=== PATIENT | male | born 2000 | race Caucasian/White ===

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

== ENCOUNTER 2021-07-06 11:05 | Emergency (ER) | payer MEDICAID ==
[~2021-07-06] VITALS: Ht 157.5 cm; Wt 86.2 kg
[2021-07-06 11:14] VITALS: BP 186/71
--- NOTE | 2021-07-06 11:37 | NUR ---
21 Y/O MALE BIB self for C/O RIGHT EAR PAIN 5/10, FULLNESS and pressure like pain, +TINNITUS. DENIES FEVER/CHILLS. DENIES N/V/D. Denies cp at this time. States he was showering and may have water or wax trapped inside. Uses Q-tips and ear removal wax drops. No wax was expelled. PmHx: Denies Allergies: Denies Home medications: none
--- NOTE | 2021-07-06 12:26 | NUR ---
Manny Strickland at bedside for procedure per RICK huffman
[2021-07-06 13:12] VITALS: BP 175/69
== END 2021-07-06 13:12 | disposition home or self-care (01) ==
LOC: MED 11:05
DX: H61.23 Impacted cerumen, bilateral (principal)
CPT/HCPCS: 99282

== ENCOUNTER 2023-02-22 00:12 | Emergency (ER) | payer MEDICAID ==
[~2023-02-22] VITALS: Ht 162.6 cm; Wt 92.1 kg
[2023-02-22 00:29] VITALS: BP 135/87
[2023-02-22 00:46] LABS: APPEARANCE,URINE CLEAR (CLEAR); BILIRUBIN,URINE NEGATIVE (NEGATIVE); BLOOD, URINE NEGATIVE (NEGATIVE); COLOR,URINE YELLOW (YELLOW); LEUKOCYTE ESTERASE ,URINE NEGATIVE (NEGATIVE); NITRITE, URINE NEGATIVE (NEGATIVE); UGLUCOSE NEGATIVE (NEGATIVE)
--- NOTE | 2023-02-22 02:14 | NUR ---
PT AMBULATED TO BED 3
[2023-02-22] MEDS ORDERED: KETOROLAC 30 MG/ML VIAL IM ONE (02:35)
[2023-02-22 02:48] LABS: BASOPHILS % (AUTO) 0.5 % (0.0-2.0); EOSINOPHILS # (AUTO) 0.1 K/uL (0-0.4); EOSINOPHILS % (AUTO) 1.3 % (0.0-4.0); HEMATOCRIT 45.8 % (36-52); HEMOGLOBIN 15.6 g/dL (12.0-18.0); LYMPHOCYTES # (AUTO) 2.3 K/uL (2.0-11.5); LYMPHOCYTES % (AUTO) 32.9 % (20.5-51.1); MEAN CORPUSCULAR HEMOGLOBIN 30 pg (27-31); MEAN CORPUSCULAR HGB CONC 34 g/dL (33-37); MEAN CORPUSCULAR VOLUME 87.5 fL (80-94); MONOCYTES # (AUTO) 0.7 K/uL (0.8-1.0); MONOCYTES % (AUTO) 10.4 % (1.7-9.3); NEUTROPHILS # (AUTO) 3.9 K/uL (1.8-7.7); NEUTROPHILS % (AUTO) 54.9 % (42.2-75.2); PLATELET COUNT (AUTO) 219 K/uL (140-450); RED BLOOD CELL COUNT(AUTO) 5.24 MIL/uL (4.20-6.10); RED CELL DISTRIBUTION WIDTH 13.4 % (11.6-13.7); WHITE BLOOD COUNT (AUTO) 7.1 K/uL (4.8-10.8)
[2023-02-22 02:56] LABS: BARBITURATE, URINE NEGATIVE ng/ml (NEG <=200); BENZODIAZEPINE, URINE NEGATIVE ng/mL (NEG <=200); CANNABINOID, URINE NEGATIVE ng/mL (NEG <=50); COCAINE, URINE NEGATIVE ng/mL (NEG <=300); OPIATE, URINE NEGATIVE ng/mL (NEG <=2000); PHENCYCLIDINE SCREEN,URINE NEGATIVE ng/mL (NEG <=25)
[2023-02-22 03:07] LABS: ALBUMIN 3.7 g/dL (3.4-5.0); ANION GAP 11.1 (8-16); CREATININE 1.1 mg/dL (0.6-1.3); POTASSIUM 4.1 mmol/L (3.5-5.1); TOTAL BILIRUBIN 0.4 mg/dL (0.0-1.0)
[2023-02-22] MEDS ORDERED: NAPR-54 PO (03:33)
[2023-02-22 03:40] VITALS: BP 135/87
--- NOTE | 2023-02-22 03:40 | NUR ---
Patient discharged with v/s stable. Written and verbal after care instructions given and explained. Patient alert, oriented and verbalized understanding of instructions. Ambulatory with steady gait. All questions addressed prior to discharge. ID band removed. Patient advised to follow up with PMD. Rx of NAPROXEN given. Patient educated on indication of medication including possible reaction and side effects. Opportunity to ask questions provided and answered. DX:FLANK PAIN, ADULT
== END 2023-02-22 03:40 | disposition home or self-care (01) ==
LOC: MED 00:12
DX: R10.9 Unspecified abdominal pain (principal); Z79.899 Other long term (current) drug therapy
CPT/HCPCS: 36415; 80053; 80305; 81003; 83690; 85025; 87491; 96372; 99283; J1885

== ENCOUNTER 2023-05-25 13:06 | Emergency (ER) | payer MEDICAID ==
[~2023-05-25] VITALS: Ht 162.6 cm; Wt 68.0 kg
[~2023-05-25 13:06] MED LIST: NAPR-54 PO
[2023-05-25 13:08] VITALS: BP 125/67; PULSE 62; RESP 16; TEMP 97.3; O2SAT 98
[2023-05-25] MEDS: DICYCLOMINE HCL LIQUID 20 MG, ALUMINUM HYD/MAG/SIMETHICONE 30 ML, LIDOCAINE VISCOUS 2% ... PO ONE ×3 (13:40)
[2023-05-25] MEDS ORDERED: ALUMINUM HYD/MAG/SIMETHICONE 30 ML UDC ONE (15:10)
[2023-05-25] MEDS ORDERED: DICYCLOMINE HCL LIQUID 10 MG/5 ML UDC ONE (15:10)
[2023-05-25] MEDS ORDERED: FAMO-90 PO (15:28)
== END 2023-05-25 16:03 | disposition home or self-care (01) ==
LOC: MED 13:06
DX: K29.70 Gastritis, unspecified, without bleeding (principal); K21.9 Gastro-esophageal reflux disease without esophagitis; Z79.899 Other long term (current) drug therapy; Z79.1 Long term (current) use of non-steroidal anti-inflammatories (NSAID)
CPT/HCPCS: 99282

== ENCOUNTER 2024-07-02 16:13 | Emergency (ER) | payer MEDICAID, OTHER ==
[~2024-07-02] VITALS: Ht 162.6 cm; Wt 93.4 kg
[~2024-07-02 16:13] MED LIST changes: +FAMO-90 PO; +NAPR-337 PO; -NAPR-54 PO
[2024-07-02 16:55] VITALS: BP 138/88; PULSE 87; RESP 15; TEMP 98.8; O2SAT 97
[2024-07-02 17:59] LABS: APPEARANCE,URINE CLEAR (CLEAR); BILIRUBIN,URINE NEGATIVE (NEGATIVE); BLOOD, URINE NEGATIVE (NEGATIVE); COLOR,URINE YELLOW (YELLOW); LEUKOCYTE ESTERASE ,URINE NEGATIVE (NEGATIVE); NITRITE, URINE NEGATIVE (NEGATIVE); PROTEIN,URINE NEGATIVE (NEGATIVE); UGLUCOSE NEGATIVE (NEGATIVE); UROBILINOGEN,URINE 0.2 EU/dL (0.2 - 1)
[2024-07-02] MEDS ORDERED: CARB15DR61 OT (18:18)
== END 2024-07-02 18:23 | disposition home or self-care (01) ==
LOC: MED 16:13
DX: R35.0 Frequency of micturition (principal); R39.15 Urgency of urination; H61.23 Impacted cerumen, bilateral; K21.9 Gastro-esophageal reflux disease without esophagitis; G43.909 Migraine, unspecified, not intractable, without status migrainosus; Z86.73 Personal history of transient ischemic attack (TIA), and cerebral infarction without residual deficits; Z79.899 Other long term (current) drug therapy
CPT/HCPCS: 81003; 82948; 99283

== ENCOUNTER 2024-07-31 09:34 | Emergency (ER) | payer OTHER ==
[~2024-07-31] VITALS: Ht 162.6 cm; Wt 94.8 kg
[~2024-07-31 09:34] MED LIST changes: +CARB15DR61 OT
[2024-07-31 09:49] VITALS: BP 133/82; PULSE 70; RESP 19; TEMP 97.3; O2SAT 96
[2024-07-31] MEDS ORDERED: ALUMINUM HYD/MAG/SIMETHICONE 30 ML UDC ONE (10:38)
[2024-07-31] MEDS ORDERED: DICYCLOMINE HCL LIQUID 10 MG/5 ML UDC ONE (10:38)
[2024-07-31] MEDS: DICYCLOMINE HCL LIQUID 20 MG, ALUMINUM HYD/MAG/SIMETHICONE 30 ML, LIDOCAINE VISCOUS 2% ... PO ONE (10:44)
[2024-07-31] MEDS ORDERED: FAMO-90 PO (11:43)
[2024-07-31] MEDS ORDERED: MAG-27 PO (11:43)
[2024-07-31 12:00] VITALS: BP 135/86; PULSE 74; RESP 16; O2SAT 96
== END 2024-07-31 12:08 | disposition home or self-care (01) ==
LOC: MED 09:34
DX: R10.13 Epigastric pain (principal); R07.89 Other chest pain; F43.9 Reaction to severe stress, unspecified; K21.9 Gastro-esophageal reflux disease without esophagitis; R03.0 Elevated blood-pressure reading, without diagnosis of hypertension; Z79.899 Other long term (current) drug therapy
CPT/HCPCS: 93005; 99284